=== PATIENT | female | born 1995 | race Two or more races ===

== ENCOUNTER 2023-01-17 15:47 | Emergency (ER) | payer OTHER ==
[~2023-01-17] VITALS: Ht 165.1 cm; Wt 77.0 kg
[2023-01-17 16:17] LABS: Urine Bacteria NONE SEEN /hpf (None Seen); Urine Blood Negative /uL (Negative); Urine Clarity Clear (Clear); Urine Protein, UAD Negative (Negative); Urine Specific Gravity 1.008 (1.001-1.035); Urine Urobilinogen Normal (Negative); Urine WBC <1 /hpf (0 - 5)
[2023-01-17 16:18] LABS: Urine Color STRAW (Yellow)
[2023-01-17 17:29] VITALS: BP 130/83; PULSE 115; RESP 20; TEMP 98.8; O2SAT 99
[2023-01-17] MEDS ORDERED: ALPRAZolam 0.5 MG TAB PO ONE (17:45)
[2023-01-17] MEDS ORDERED: ALPR0.5T PO (17:53)
== END 2023-01-17 18:11 | disposition home or self-care (01) ==
LOC: EDBD 15:47 → ER 15:47
DX: G44.209 Tension-type headache, unspecified, not intractable (principal); F41.1 Generalized anxiety disorder
CPT/HCPCS: 70450; 81001